=== PATIENT | male | born 1960 | race Caucasian/White ===

== ENCOUNTER 2017-07-23 08:57 | Inpatient (IN) ==
[2017-07-23] MEDS ORDERED: ONDANSETRON ODT 4 MG TABLET PO ONE (09:02)
[2017-07-23] MEDS ORDERED: PANTOPRAZOLE 40 MG VIAL IV STA (09:13)
[2017-07-23] MEDS ORDERED: SODIUM CHLORIDE 0.9% 2,000 ML IV STA (09:13)
[2017-07-23] MEDS ORDERED: ONDANSETRON 4 MG/2 ML VIAL IV STA (09:13)
[2017-07-23 09:32] LABS: Basophils # 0.1 10*3/uL (0.0-0.2); Basophils % 1.1 % (0.0-0.8); Eosinophils # 0.2 10*3/uL (0.0-0.87); Eosinophils % 2.6 % (0.00-10.9); Hematocrit 40.3 VOL% (42.0-52.0); Hemoglobin 13.5 GM/DL (14.0-18.0); Immature Granulocytes % 0.3 %; Immature Granulocytes Absolute 0.02 #; Lymphocytes # 2.1 10*3/uL (1.4-4.0); Lymphocytes % 32.8 % (21.2-54.2); Mean Corpuscular HGB Conc 33.5 GM/DL (32-36); Mean Corpuscular Hemoglobin 32 PG (27-34); Mean Corpuscular Volume 94.6 FL (87-102); Mean Platelet Volume 9.2 FL (9.6-12.0); Monocytes # 0.5 10*3/uL (0.11-0.8); Monocytes % 7.2 % (1.7-12.7); Neutrophils # 3.7 10*3/uL (1.4-7.4); Platelet Count 276 T/CUMM (130-400); Red Blood Count 4.26 MC/CUMM (3.8-5.5); Red Cell Distribution Width 12.1 % (9.3-17.3); White Blood Count 6.5 T/CUMM (4-12)
[2017-07-23] MEDS ORDERED: MORPHINE 2 MG/1 ML SYRINGE IV STA (09:35)
[2017-07-23] MEDS ORDERED: PANTOPRAZOLE 40 MG VIAL IV ONE (09:36)
[2017-07-23] MEDS ORDERED: ONDANSETRON 4 MG/2 ML VIAL ONE (09:36)
[2017-07-23] MEDS ORDERED: MORPHINE 2 MG/1 ML SYRINGE ONE (09:36)
[2017-07-23 09:53] LABS: PT Patient Result 10.3 SECS; Partial Thromboplastin Time 25.3 SECS (0-40)
[2017-07-23 09:55] LABS: Bilirubin,Total 0.4 MG/DL (0.2-1.0); Calcium 9.7 MG/DL (8.5-10.1); Osmolality,Calculated 270.8 MOS/KG (273-304); Potassium 4.6 MMOL/L (3.5-5.1); Total Protein 7.4 G/DL (6.4-8.3)
[2017-07-23] MEDS ORDERED: NICOTINE 21 MG/24 HR PATCH TRANSDERM PRN (11:25)
[2017-07-23] MEDS ORDERED: ONDANSETRON 4 MG/2 ML VIAL IV PRN (11:25)
[2017-07-23] MEDS: SODIUM CHLORIDE 0.9% 1,000 ML IV SCH ×2 (12:45→22:40)
[2017-07-23] MEDS: LORazepam 2 MG/1 ML VIAL IV PRN ×2 (13:36→19:53)
[2017-07-23] MEDS: MORPHINE 2 MG/1 ML SYRINGE IV PRN ×2 (15:58→22:41)
[2017-07-23] MEDS: ALBUTEROL/IPRATROPIUM 3 ML NEB RESP TX SCH ×2 (16:00→19:09)
[2017-07-23] MEDS: PANTOPRAZOLE 40 MG VIAL IV SCH (22:37)
[2017-07-24] MEDS: ALBUTEROL/IPRATROPIUM 3 ML NEB RESP TX SCH ×4 (00:34→18:56)
[2017-07-24] MEDS: MORPHINE 2 MG/1 ML SYRINGE IV PRN ×3 (05:34→20:09)
[2017-07-24 05:35] LABS: Hematocrit 33.9 VOL% (42.0-52.0); Hemoglobin 11.6 GM/DL (14.0-18.0)
[2017-07-24] MEDS: LORazepam 2 MG/1 ML VIAL IV PRN ×3 (08:48→22:28)
[2017-07-24] MEDS: PANTOPRAZOLE 40 MG VIAL IV SCH ×2 (08:48→21:47)
[2017-07-24] MEDS: SODIUM CHLORIDE 0.9% 1,000 ML IV SCH ×3 (08:48→20:14)
[2017-07-24] MEDS ORDERED: POLYETHYLENE GLYCOL POWDER 255 GM BOTTLE PO ONE (19:15)
[2017-07-25] MEDS: ALBUTEROL/IPRATROPIUM 3 ML NEB RESP TX SCH ×3 (00:25→12:12)
[2017-07-25] MEDS: MORPHINE 2 MG/1 ML SYRINGE IV PRN ×2 (00:44→05:34)
[2017-07-25] MEDS: SODIUM CHLORIDE 0.9% 1,000 ML IV SCH ×2 (05:28→13:19)
[2017-07-25 05:55] LABS: Basophils # 0.1 10*3/uL (0.0-0.2); Eosinophils # 0.3 10*3/uL (0.0-0.87); Eosinophils % 5.1 % (0.00-10.9); Hematocrit 33.8 VOL% (42.0-52.0); Hemoglobin 11.4 GM/DL (14.0-18.0); Immature Granulocytes % 0.3 %; Immature Granulocytes Absolute 0.02 #; Lymphocytes # 2.8 10*3/uL (1.4-4.0); Lymphocytes % 45.7 % (21.2-54.2); Mean Corpuscular HGB Conc 33.7 GM/DL (32-36); Mean Corpuscular Hemoglobin 32 PG (27-34); Mean Corpuscular Volume 93.6 FL (87-102); Mean Platelet Volume 9.7 FL (9.6-12.0); Monocytes # 0.4 10*3/uL (0.11-0.8); Monocytes % 6.7 % (1.7-12.7); Neutrophils # 2.5 10*3/uL (1.4-7.4); Neutrophils % 41.2 % (38.7-73.9); Platelet Count 232 T/CUMM (130-400); Red Blood Count 3.61 MC/CUMM (3.8-5.5); White Blood Count 6.1 T/CUMM (4-12)
[2017-07-25 05:57] LABS: Hematocrit 33.6 VOL% (42.0-52.0); Hemoglobin 11.4 GM/DL (14.0-18.0)
[2017-07-25] MEDS ORDERED: MAGNESIUM CITRATE 300 ML BOTTLE PO ONE (06:00)
[2017-07-25 06:04] LABS: Alanine Aminotransferase 13 U/L (16-61); Alkaline Phosphatase 51 U/L (45-117); Aspartate Amino Transferase 18 U/L (0-37); Bilirubin,Total < 0.39 MG/DL (0.2-1.0); Blood Urea Nitrogen 3 MG/DL (7-18); Calcium 8.3 MG/DL (8.5-10.1); Glucose 86 MG/DL (74-106); Osmolality,Calculated 283.7 MOS/KG (273-304); Sodium 145 MMOL/L (136-145); Total Protein 5.9 G/DL (6.4-8.3)
[2017-07-25] MEDS: PANTOPRAZOLE 40 MG VIAL IV SCH (08:31)
[2017-07-25] MEDS: MORPHINE 10 MG/1 ML VIAL IV PRN ×2 (08:31→13:36)
[2017-07-25] MEDS ORDERED: LIDOCAINE 2% 5 ML VIAL ONE ×2 (11:54→12:35)
[2017-07-25] MEDS ORDERED: PROPOFOL 200 MG/20 ML VIAL IV ONE ×2 (11:54→12:35)
[2017-07-25] MEDS ORDERED: GLYCOPYRROLATE 0.4 MG/2 ML VIAL ONE (12:35)
[2017-07-25 17:03] VITALS: BP 153/74
== END 2017-07-25 18:00 | disposition home or self-care (01) | DRG 378 ==
LOC: N.ED 08:57 → N.EDINP 10:56 → N.2E 12:45
PROVIDERS: ADMIT Hospitalist; ATTEND Hospitalist
PROC: COLONBX (2017-07-25 13:35)